=== PATIENT | female | born 1995 | race Two or more races ===

== ENCOUNTER 2019-02-06 05:10 | Emergency (ER) | payer BC, MEDICAID ==
[2019-02-06] MEDS ORDERED: Ketorolac 60 MG/2 ML SDV IM ONE (05:15)
[2019-02-06] MEDS ORDERED: Cyclobenzaprine 10 MG Tab PO ONE (05:16)
--- NOTE | 2019-02-06 05:26 | EDM.PDOC ---
ED HPI GENERAL MEDICAL PROBLEM - General Stated Complaint: NECK PAIN Time Seen by Provider: 02/06/19 05:20 Source of Information: Reports: Patient - History of Present Illness INITIAL COMMENTS - FREE TEXT/NARRATIVE: Patient is a 23 yo F who presented to the ED because apparently she combing her hair,heard a pop on her neck and now c/o RUE pain and weakness. ED ROS GENERAL - Review of Systems Review Of Systems: See Below Constitutional: Reports: No Symptoms HEENT: Reports: No Symptoms Respiratory: Reports: No Symptoms Cardiovascular: Reports: No Symptoms Endocrine: Reports: No Symptoms GI/Abdominal: Reports: No Symptoms : Reports: No Symptoms Musculoskeletal: Reports: No Symptoms, Muscle Pain Neurological: Reports: No Symptoms, Change in Speech ED EXAM, UPPER BACK/NECK PAIN - Physical Exam Exam: See Below Exam Limited By: No Limitations General Appearance: Alert, WD/WN, No Apparent Distress Eye Exam: Bilateral Eye: PERRL Ears Exam: Normal External Exam, Normal Canal Nose Exam: Normal Inspection, Normal Mucousa, No Blood Throat/Mouth Exam: Normal Inspection, Normal Lips, Normal Teeth Head Exam: Atraumatic, Normocephalic Neck Exam: Other (tenderness to C5-c7 area) Cardiovascular/Respiratory: Regular Rate, Rhythm GI/Abdominal: Normal Bowel Sounds, Soft, Non-Tender Course - Vital Signs Text/Narrative:: Ct c-spine Toradol 60 mg IM x1 Flexeril 10 mg po x1 - Orders/Labs/Meds Orders: Active Orders 24 hr Category Date Time Status Cervical Spine w wo Cont [CT] Stat Exams 02/06/19 05:17 Ordered Meds: Medications Discontinued Medications Generic Name Dose Route Start Last Admin Trade Name Tiara PRN Reason Stop Dose Admin Cyclobenzaprine HCl 10 mg 02/06/19 05:16 Flexeril PO 02/06/19 05:17 ONETIME ONE Ketorolac Tromethamine 60 mg 02/06/19 05:15 Toradol IM 02/06/19 05:16 ONETIME ONE Departure - Departure Time of Disposition: 05:30 Disposition: Home, Self-Care 01 Clinical Impression: Cervical strain, acute - Discharge Information Referrals: PCP,None [Primary Care Provider] - - My Orders Last 24 Hours: My Active Orders 02/06/19 05:17 Cervical Spine w wo Cont [CT] Stat - Assessment/Plan Last 24 Hours: My Active Orders 02/06/19 05:17 Cervical Spine w wo Cont [CT] Stat
[2019-02-06] MEDS: Acetaminophen/HYDROcodone 325-5 MG Tab PO ONE ×2 (06:34→08:22)
[2019-02-06] MEDS ORDERED: Acetaminophen/HYDROcodone 325-5 MG Tab PO ONE (08:18)
== END 2019-02-06 06:45 | disposition home or self-care (01) ==
LOC: FB.ED 05:10
DX: S16.1XXA Strain of muscle, fascia and tendon at neck level, initial encounter (principal); X50.9XXA Other and unspecified overexertion or strenuous movements or postures, initial encounter
CPT/HCPCS: 72127; 96372; 99283; A9270; J1885

== ENCOUNTER 2019-02-11 06:54 | Emergency (ER) | payer BC ==
[2019-02-11] MEDS ORDERED: Sodium Chloride 0.9% 10 ML Syringe FLUSH PRN (07:28)
[2019-02-11] MEDS ORDERED: Sodium Chloride 0.9% 1,000 ML IV ONE (07:29)
[2019-02-11] MEDS ORDERED: HYDROmorphone 2 MG/ML SDV IVPUSH ONE (07:29)
[2019-02-11] MEDS ORDERED: Ondansetron 4 MG/2 ML SDV IVPUSH ONE (07:29)
--- NOTE | 2019-02-11 07:31 | EDM.PDOC ---
ED HPI GENERAL MEDICAL PROBLEM - General Chief Complaint: Back Pain or Injury Stated Complaint: BACK PAIN/ABDOMINAL PAIN Time Seen by Provider: 02/11/19 07:17 Source of Information: Reports: Patient History Limitations: Reports: No Limitations - History of Present Illness INITIAL COMMENTS - FREE TEXT/NARRATIVE: 23-year-old female who reports at 2 AM she was awakened with pain from her mid back down to her sacral area that was a cramping type pain that she describes as "back labor feeling". The pain has worsened with time. It does radiate through to her lower abdomen and pelvic area. She had no antecedent symptoms. She has developed some nausea associated with it but no vomiting. Her last normal menstrual period was 2 weeks ago and she has no vaginal discharge. She's had no dysuria or hematuria. She rates the pain as a 10/10. Nothing really seems to make it better. There are no exacerbating factors as well. She did have some neck strain about a week ago but she had no problems with her back at that time. She does have some intermittent problems with back pain but nothing like this kind of pain and it has never radiated through to her abdomen. No fevers. No chills. She had a normal day yesterday. She has been eating and drinking normally. There are no other associated signs or symptoms. There are no other modifying factors. Onset: Today (2 AM) Duration: Getting Worse Location: Reports: Abdomen, Back Quality: Reports: Other (Cramping) Severity: Severe Improves with: Reports: None Worsens with: Reports: None Context: Reports: Other (As above) Associated Symptoms: Reports: Nausea/Vomiting Treatments [employer]: Reports: Other (see below) (Nothing) - Related Data Allergies Allergy/AdvReac Type Severity Reaction Status Date / Time No Known Allergies Allergy Verified 02/06/19 05:25 Home Meds: Home Meds Cyclobenzaprine [Flexeril] 10 mg PO TID PRN #15 tab 02/06/19 [Rx] Ibuprofen 800 mg PO TID PRN #30 tablet 02/06/19 [Rx] Hydrocodone/Acetaminophen [[place] 5-325 Tablet] 1 - 2 each PO Q6H PRN #6 tablet 02/11/19 [Rx] Sulfamethoxazole/Trimethoprim [Bactrim Ds Tablet] 1 each PO BID 7 Days #14 tablet 02/11/19 [Rx] Past Medical History - Past Health History Medical/Surgical History: Denies Medical/Surgical History - Past Surgical History Other Surgical History Comment: No previous surgeries. Social & Family History - Tobacco Use Smoking Status *Q: Unknown Ever Smoked (Nonsmoker) - Caffeine Use Caffeine Use: Reports: None - Sexual History Sexual History: Reports: Single Partner (Her 's had a vasectomy) - Living Situation & Occupation Living situation: Reports: Social History Comment: She is here with her . ED ROS GENERAL - Review of Systems Review Of Systems: See Below Constitutional: Reports: No Symptoms HEENT: Reports: No Symptoms Respiratory: Reports: No Symptoms Cardiovascular: Reports: No Symptoms GI/Abdominal: Reports: Abdominal Pain, Nausea. Denies: Vomiting : Reports: No Symptoms Musculoskeletal: Reports: Back Pain (As described above) Skin: Reports: No Symptoms Neurological: Reports: No Symptoms Hematologic/Lymphatic: Reports: No Symptoms Immunologic: Reports: No Symptoms ED EXAM, GENERAL - Physical Exam Exam: See Below Exam Limited By: No Limitations General Appearance: Alert, WD/WN, Moderate Distress Eye Exam: Bilateral Eye: EOMI, Normal Inspection, PERRL Ears: Normal External Exam, Hearing Grossly Normal Ear Exam: Bilateral Ear: Auricle Normal Nose: Normal Inspection, Normal Mucosa, No Blood Throat/Mouth: Normal Voice, No Airway Compromise, Other (Somewhat dry mucous membranes) Head: Atraumatic, Normocephalic Neck: Normal Inspection, Supple, Non-Tender, Full Range of Motion Respiratory/Chest: No Respiratory Distress, Lungs Clear, Normal Breath Sounds, No Accessory Muscle Use, Chest Non-Tender Cardiovascular: Normal Peripheral Pulses, No Murmur, Tachycardia (Mildly) Peripheral Pulses: 2+: Radial (L), Radial (R), Dorsalis Pedis (L), Dorsalis Pedis (R) GI/Abdominal: Normal Bowel Sounds, Soft, Non-Tender, No Mass, Other (I cannot reproduce the patient's pain with palpation.) (Female) Exam: Normal External Exam, Normal Speculum Exam, Normal Bimanual Exam, Vaginal Discharge (Physiologic appearing.). No: Adnexal Mass, Adnexal Tenderness, Cervix Motion Tenderness, Uterine Tenderness Back Exam: Normal Inspection, Full Range of Motion, Decreased Range of Motion. No: CVA Tenderness (R), CVA Tenderness (L), Muscle Spasm, Paraspinal Tenderness , Vertebral Tenderness Extremities: Normal Inspection, Normal Range of Motion, Non-Tender, No Pedal Edema, Normal Capillary Refill Neurological: Alert, Oriented, CN II-XII Intact, Normal Cognition, No Motor/ Sensory Deficits Skin Exam: Warm, Dry, Intact, Normal Color, No Rash Course - Vital Signs Last Recorded V/S: Last Vital Signs Temp 36.2 C 02/11/19 06:54 Pulse 58 L 02/11/19 08:45 Resp 18 02/11/19 08:45 BP 137/84 02/11/19 08:45 Pulse Ox 99 02/11/19 08:45 - Orders/Labs/Meds Orders: Active Orders 24 hr Category Date Time Status Abdomen Pelvis wo Cont [CT] Stat Exams 02/11/19 08:55 Taken CHLAMYDIA/GC AMPLIFICATION Urgent Lab 02/11/19 08:36 Received CULTURE URINE [RM] Stat Lab 02/11/19 08:36 Received WET PREP [MYC] Stat Lab 02/11/19 10:08 Ordered Sodium Chloride 0.9% [Saline Flush] Med 02/11/19 07:28 Active 10 ml FLUSH ASDIRECTED PRN Peripheral IV Insertion Adult [OM.PC] Routine Oth 02/11/19 07:28 Ordered Medication Orders Sodium Chloride (Saline Flush) 10 ml FLUSH ASDIRECTED PRN PRN Reason: Keep Vein Open Last Admin: 02/11/19 07:57 Dose: 10 ml Labs: Laboratory Tests 02/11/19 02/11/19 02/11/19 Range/Units 07:45 07:45 07:45 WBC 6.9 (4.5-12.0) X10-3/uL RBC 5.09 (3.23-5.20) x10(6)uL Hgb 14.1 (11.5-15.5) g/dL Hct 42.5 (30.0-51.3) % MCV 83.5 (80-96) fL MCH 27.7 (27.7-33.6) pg MCHC 33.1 (32.2-35.4) g/dL RDW 12.6 (11.5-15.5) % Plt Count 229 (125-369) X10(3)uL MPV 7.5 (7.4-10.4) fL Neut % (Auto) 70.5 (46-82) % Lymph % (Auto) 20.9 (13-37) % [place] % (Auto) 5.5 (4-12) % Eos % (Auto) 3 (1.0-5.0) % Baso % (Auto) 0 (0-2) % Neut # (Auto) 4.9 (1.6-8.3) # Lymph # (Auto) 1.4 (0.6-5.0) # [place] # (Auto) 0.4 (0.0-1.3) # Eos # (Auto) 0.2 (0.0-0.8) # Baso # (Auto) 0.0 (0.0-0.2) # Sodium 136 (135-145) mmol/L Potassium 3.8 (3.5-5.3) mmol/L Chloride 101 (100-110) mmol/L Carbon Dioxide 24 (21-32) mmol/L BUN 11 (7-18) mg/dL Creatinine 0.9 (0.55-1.02) mg/dL Est Cr Clr Drug Dosing 90.23 mL/min Estimated GFR (MDRD) > 60 (>60) BUN/Creatinine Ratio 12.2 (9-20) Glucose 121 H (80-116) mg/dL Calcium 9.4 (8.6-10.2) mg/dL Total Bilirubin 0.3 (0.1-1.3) mg/dL AST 15 (5-25) IU/L ALT 18 (12-36) U/L Alkaline Phosphatase 67 (56-112) IU/L C-Reactive Protein 0.6 (0.5-0.9) mg/dL Total Protein 8.2 H (6.0-8.0) g/dL Albumin 4.0 (3.5-5.2) g/dL Globulin 4.2 g/dL Albumin/Globulin Ratio 1.0 Amylase 60 (25-115) U/L Urine Color (YELLOW) Urine Appearance (CLEAR) Urine pH (5.0-6.5) Ur Specific [place] (1.010-1.025) Urine Protein (NEGATIVE) mg/dL Urine Glucose (UA) (NORMAL) mg/dL Urine Ketones (NEGATIVE) mg/dL Urine Occult Blood (NEGATIVE) Urine Nitrite (NEGATIVE) Urine Bilirubin (NEGATIVE) Urine Urobilinogen (NEGATIVE) mg/dL Ur Leukocyte Esterase (NEGATIVE) Urine RBC (0-5) Urine WBC (0-5) Ur Squamous Epith Cells (NS,R,O) Urine Bacteria (NS) Urine HCG, Qual (NEGATIVE) 02/11/19 02/11/19 Range/Units 08:36 08:36 WBC (4.5-12.0) X10-3/uL RBC (3.23-5.20) x10(6)uL Hgb (11.5-15.5) g/dL Hct (30.0-51.3) % MCV (80-96) fL MCH (27.7-33.6) pg MCHC (32.2-35.4) g/dL RDW (11.5-15.5) % Plt Count (125-369) X10(3)uL MPV (7.4-10.4) fL Neut % (Auto) (46-82) % Lymph % (Auto) (13-37) % [place] % (Auto) (4-12) % Eos % (Auto) (1.0-5.0) % Baso % (Auto) (0-2) % Neut # (Auto) (1.6-8.3) # Lymph # (Auto) (0.6-5.0) # [place] # (Auto) (0.0-1.3) # Eos # (Auto) (0.0-0.8) # Baso # (Auto) (0.0-0.2) # Sodium (135-145) mmol/L Potassium (3.5-5.3) mmol/L Chloride (100-110) mmol/L Carbon Dioxide (21-32) mmol/L BUN (7-18) mg/dL Creatinine (0.55-1.02) mg/dL Est Cr Clr Drug Dosing mL/min Estimated GFR (MDRD) (>60) BUN/Creatinine Ratio (9-20) Glucose (80-116) mg/dL Calcium (8.6-10.2) mg/dL Total Bilirubin (0.1-1.3) mg/dL AST (5-25) IU/L ALT (12-36) U/L Alkaline Phosphatase (56-112) IU/L C-Reactive Protein (0.5-0.9) mg/dL Total Protein (6.0-8.0) g/dL Albumin (3.5-5.2) g/dL Globulin g/dL Albumin/Globulin Ratio Amylase (25-115) U/L Urine Color Yellow (YELLOW) Urine Appearance Slightly cloudy (CLEAR) Urine pH 8.0 H (5.0-6.5) Ur Specific [place] 1.015 (1.010-1.025) Urine Protein Negative (NEGATIVE) mg/dL Urine Glucose (UA) Normal (NORMAL) mg/dL Urine Ketones Negative (NEGATIVE) mg/dL Urine Occult Blood Negative (NEGATIVE) Urine Nitrite Positive H (NEGATIVE) Urine Bilirubin Negative (NEGATIVE) Urine Urobilinogen Normal (NEGATIVE) mg/dL Ur Leukocyte Esterase Negative (NEGATIVE) Urine RBC 0-5 (0-5) Urine WBC 5-10 H (0-5) Ur Squamous Epith Cells Moderate H (NS,R,O) Urine Bacteria Many H (NS) Urine HCG, Qual Negative (NEGATIVE) Meds: Medications Generic Name Dose Route Start Last Admin Trade Name Freq PRN Reason Stop Dose Admin Sodium Chloride 10 ml 02/11/19 07:28 02/11/19 07:57 Saline Flush FLUSH 10 ml ASDIRECTED PRN Administration Keep Vein Open Discontinued Medications Generic Name Dose Route Start Last Admin Trade Name Freq PRN Reason Stop Dose Admin Hydromorphone HCl 1 mg 02/11/19 07:29 02/11/19 07:46 Dilaudid IVPUSH 02/11/19 07:30 1 mg ONETIME ONE Administration Sodium Chloride 1,000 mls @ 999 mls/hr 02/11/19 07:29 02/11/19 07:55 Normal Saline IV 02/11/19 08:29 999 mls/hr .BOLUS ONE Administration Ondansetron HCl 4 mg 02/11/19 07:29 02/11/19 07:46 Zofran IVPUSH 02/11/19 07:30 4 mg ONETIME ONE Administration - Radiology Interpretation Free Text/Narrative:: CT scan of abdomen and pelvis showed no acute intra-abdominal. She did have somewhat thick wall of her bladder and some gas in the cavity of the uterus that was "unusual" per the radiologist. It should be noted that the patient's pelvic exam was completely benign and unremarkable. She does have evidence of a urinary tract infection though. - Re-Assessments/Exams Free Text/Narrative Re-Assessment/Exam: 02/11/19 10:36: Patient's pain is almost completely resolved. She feels much improved after the IV fluids and the pain medication. Her nausea has resolved as well. Her blood tests were reassuringly normal. The CT scan of her abdomen and pelvis showed no definite abnormality except for the thickened urinary bladder wall. The urinalysis did show evidence of infection. Her pain may be related to this urinary tract infection and I will place the patient on antibiotics to treat this. I have also given her a small prescription of hydrocodone if she has any more some type pain like she had. She was urged to follow-up with her primary doctor. Departure - Departure Time of Disposition: 10:40 Disposition: Home, Self-Care 01 Condition: Good (Improved) Clinical Impression: Back pain with radiation Urinary tract infection Qualifiers: Urinary tract infection type: site unspecified Hematuria presence: with hematuria Qualified Code(s): N39.0 - Urinary tract infection, site not specified ; R31.9 - Hematuria, unspecified Abdominal pain Qualifiers: Abdominal location: lower abdomen, unspecified Qualified Code(s): R10.30 - Lower abdominal pain, unspecified - Discharge Information Prescriptions: Hydrocodone/Acetaminophen [[place] 5-325 Tablet] 1 - 2 each PO Q6H PRN #6 tablet PRN Reason: Moderate to severe pain Sulfamethoxazole/Trimethoprim [Bactrim Ds Tablet] 1 each PO BID 7 Days #14 tablet Instructions: Abdominal Pain, Adult, [id number], Urinary Tract Infection, Adult, [id number] Referrals: Kayla South NP [Nurse Practitioner] - Forms: ED Department Discharge Additional Instructions: Your blood tests were reassuringly normal. Your urine test showed some evidence of infection. The CT scan of your abdomen and pelvis supported there being a urinary infection but did not show any other acute abnormality. I am not really sure why you had such severe back pain radiating to your abdomen. This could have been due to bladder spasm related to your infection. You should increase her fluid intake. You should rest. Medication as prescribed (Bactrim DS, hydrocodone 5/325). I have referred you to Kayla South NP for follow-up. She would also be a good choice as a primary provider for you. Back to the emergency department for unrelenting vomiting, high fever, worsening abdominal pain or any other concerning sign or symptom. - My Orders Last 24 Hours: My Active Orders 02/11/19 07:28 Sodium Chloride 0.9% [Saline Flush] 10 ml FLUSH ASDIRECTED PRN Peripheral IV Insertion Adult [OM.PC] Routine 02/11/19 08:36 CHLAMYDIA/GC AMPLIFICATION Urgent CULTURE URINE [RM] Stat 02/11/19 08:55 Abdomen Pelvis wo Cont [CT] Stat 02/11/19 10:08 WET PREP [MYC] Stat - Assessment/Plan Last 24 Hours: My Active Orders 02/11/19 07:28 Sodium Chloride 0.9% [Saline Flush] 10 ml FLUSH ASDIRECTED PRN Peripheral IV Insertion Adult [OM.PC] Routine 02/11/19 08:36 CHLAMYDIA/GC AMPLIFICATION Urgent CULTURE URINE [RM] Stat 02/11/19 08:55 Abdomen Pelvis wo Cont [CT] Stat 02/11/19 10:08 WET PREP [MYC] Stat
--- NOTE | 2019-02-11 11:13 | CT ---
INDICATION: Back and abdominal pain, question renal stone. CT ABDOMEN AND PELVIS WITHOUT CONTRAST: Spiral 2.5 mm axial sections were obtained through the abdomen and pelvis without contrast, with sagittal and coronal reconstructions, 02/11/19 - no comparisons. Total exam DLP = 913.56 mGy -cm. The lower lung eubanks and pleural spaces visualized appeared normal. The heart was normal in size. No pericardial effusion was seen. No gallstones were demonstrated. The liver, spleen, pancreas, adrenals, and kidneys appear normal. No evidence of obstructive uropathy or renal calcinosis was identified. No definite retroperitoneal mass was seen. Retroperitoneal lymphadenopathy is minimal and nonspecific. The appendix was visualized on axial images #111 through #127 and coronal images #44 through #55. The appendix was also visualized on sagittal images # 35 through #46. The appendix appeared to be normal. No evidence of free air or bowel obstruction was identified. There is suggestion of a prominent common bile duct of approximately 7 mm, unusual in this age group. No specific etiology was identified; however, without IV contrast, study is limited in that regard, especially in evaluating solid organs. The uterus appears mildly bulky with gas suggested in the uterus. It is difficult to exclude a mass in the uterus without IV contrast. A pelvic ultrasound may be helpful in that regard. Urinary bladder wall might be slightly thickened, raising question of cystitis additionally. This should be correlated clinically also. The ovaries appear to be fairly symmetrical, measuring approximately 35 mm each. No definite free fluid, mass lesions, or organomegaly were otherwise suggested. There is suggestion of some minimal loss of disk space at L4-5. This could be a normal variant. This also should be correlated clinically. No evidence of ventral hernia or inguinal hernia was identified. IMPRESSION: 1. Questionable findings in the uterus - correlate clinically. Pelvic ultrasound may be helpful for further evaluation. 2. Slight thickening of urinary bladder wall is suggested, which could be on the basis of cystitis but should be correlated clinically. 3. Minimal narrowing of the L4-5 disk may be present, raising question of disk disease at that level - correlate clinically. Report was called to Dr. Asencio at 0950 hours on 02/11/2019. [facility]
[2019-02-14 04:07] LABS: CHLAMYDIA TRACHOMATIS, NAA Negative (Negative); NEISSERIA GONORRHOEAE, NAA Negative (Negative)
== END 2019-02-11 11:00 | disposition home or self-care (01) ==
LOC: FB.ED 06:54
DX: N39.0 Urinary tract infection, site not specified (principal); R31.9 Hematuria, unspecified
CPT/HCPCS: 36415; 74176; 80053; 81001; 81025; 82150; 85025; 86140; 87086; 87088; 87186; 87210; 87491; 87591; 96361; 96374; 96375; 99284-25; J1170; J2405; J7030

== ENCOUNTER 2019-02-19 10:48 | Emergency (ER) | payer BC ==
--- NOTE | 2019-02-19 14:06 | EDM.PDOC ---
ED HPI GENERAL MEDICAL PROBLEM - General Chief Complaint: Abdominal Pain Stated Complaint: STOMACH AND BACK PAIN Time Seen by Provider: 02/19/19 11:20 Source of Information: Reports: Patient, Old Records History Limitations: Reports: No Limitations - History of Present Illness INITIAL COMMENTS - FREE TEXT/NARRATIVE: Patient is a very pleasant 24-year-old female who presents today with concern for vague sharp abdominal and back pain. She states feels like a spasm in her lower mid back, and then come straight through to the front of her abdomen. She took some ibuprofen at about 1020 this morning after pain suddenly abruptly worsened, and that seems to have helped now. She is not get any relief or change when she is doing any activities or walking around. She otherwise does not have any symptoms. She was seen last week in the ER for a similar kind of presentation, a CT abdomen and pelvis was performed and she was started on Bactrim for suspected UTI, which she finished yesterday. She denies nausea, vomiting, urinary symptoms such as increased frequency or urgency, change in menstrual cycles. She has regular periods and her last LMP was 3 weeks ago. Her has had a vasectomy she does not think she could be . She had diarrhea yesterday, but that has not generally been a problem. She has not had any fever, chills or sweats. She is otherwise healthy and does not take any medications on a regular basis. , with a 2-year-old at home and one year-old twins. Had Gestational diabetes mellitus and pre-eclampsia with first only. 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 Social & Family History - Family History Musculoskeletal: Reports: Arthritis (sister @ age 27) Oncologic: Reports: Brain, Breast, Lung - Tobacco Use Smoking Status *Q: Never Smoker - Caffeine Use Caffeine Use: Reports: Soda, Tea - Alcohol Use Alcohol Use History: Yes Number of Drinks Per Day Comment: social - Recreational Drug Use Recreational Drug Use: No - Sexual History Sexual History: Reports: Single Partner (Her 's had a vasectomy) - Living Situation & Occupation Living situation: Reports: Occupation: Employed ED ROS GENERAL - Review of Systems Review Of Systems: ROS reveals no pertinent complaints other than HPI. ED EXAM, GENERAL - Physical Exam Exam: See Below Free Text/Narrative:: Gen.: Alert, very pleasant no acute distress. Throat is without erythema, mucous members are moist and there is no tonsillar enlargement or exudates. Neck is supple and there is no cervical lymphadenopathy. No supraclavicular lymphadenopathy. Heart is regular rate and rhythm and I do not hear murmur. Lungs are clear throughout with no wheezes or crackles and good air movement in all eubanks. Abdomen positive bowel sounds, soft nondistended nontender with no rebound or guarding. No sterility signs of discomfort with palpation. Peripheral pulses +2 in the upper and lower extremities and there is no lower extremity edema. Neurologic exam shows equal strength in the upper and lower extremity is bilaterally, reflexes +2 out of 4 in the upper and lower extremity is bilaterally, and no sensation deficits. Lumbar exam she has normal flexion, extension, and side bending with no reproduction of her pain. No spinous process tenderness and no pain anywhere in her back including the costovertebral angles. Pelvic exam deferred as it was just completed last week. Course - Vital Signs Text/Narrative:: Initial impression: Patient with vague back and abdominal pain which is difficult to reproduce on exam. Workup completed last week but would benefit from pelvic ultrasound. Differential: Ovarian cyst, other intra-abdominal pathology, unlikely to be pancreatitis given her appearance, possible peptic ulcer disease. Will repeat labs, urine test and get pelvic ultrasound Last Recorded V/S: Last Vital Signs Temp 36.6 C 02/19/19 11:18 Pulse 71 02/19/19 11:18 Resp 17 02/19/19 11:18 BP 139/69 02/19/19 11:18 Pulse Ox 100 02/19/19 11:18 - Orders/Labs/Meds Orders: Active Orders 24 hr Category Date Time Status Pelvis Non OB Ltd [US] Stat Exams 02/19/19 12:06 Taken Transvaginal Non OB [US] Stat Exams 02/19/19 13:16 Taken Labs: Laboratory Tests 02/19/19 02/19/19 02/19/19 Range/Units 12:10 12:10 12:15 WBC 8.5 (4.5-12.0) X10-3/uL RBC 5.20 (3.23-5.20) x10(6)uL Hgb 14.2 (11.5-15.5) g/dL Hct 43.2 (30.0-51.3) % MCV 83.1 (80-96) fL MCH 27.3 L (27.7-33.6) pg MCHC 32.8 (32.2-35.4) g/dL RDW 12.9 (11.5-15.5) % Plt Count 245 (125-369) X10(3)uL MPV 7.5 (7.4-10.4) fL Neut % (Auto) 73.9 (46-82) % Lymph % (Auto) 13.6 (13-37) % [place] % (Auto) 4.9 (4-12) % Eos % (Auto) 7 H (1.0-5.0) % Baso % (Auto) 0 (0-2) % Neut # (Auto) 6.3 (1.6-8.3) # Lymph # (Auto) 1.2 (0.6-5.0) # [place] # (Auto) 0.4 (0.0-1.3) # Eos # (Auto) 0.6 (0.0-0.8) # Baso # (Auto) 0.0 (0.0-0.2) # ESR 19 (0-20) mm/hr Sodium (135-145) mmol/L Potassium (3.5-5.3) mmol/L Chloride (100-110) mmol/L Carbon Dioxide (21-32) mmol/L BUN (7-18) mg/dL Creatinine (0.55-1.02) mg/dL Est Cr Clr Drug Dosing mL/min Estimated GFR (MDRD) (>60) BUN/Creatinine Ratio (9-20) Glucose (80-116) mg/dL Calcium (8.6-10.2) mg/dL Total Bilirubin (0.1-1.3) mg/dL AST (5-25) IU/L ALT (12-36) U/L Alkaline Phosphatase (56-112) IU/L C-Reactive Protein (0.5-0.9) mg/dL Total Protein (6.0-8.0) g/dL Albumin (3.5-5.2) g/dL Globulin g/dL Albumin/Globulin Ratio Amylase (25-115) U/L Urine Color Yellow (YELLOW) Urine Appearance Clear (CLEAR) Urine pH 6.0 (5.0-6.5) Ur Specific [place] 1.015 (1.010-1.025) Urine Protein Negative (NEGATIVE) mg/dL Urine Glucose (UA) Normal (NORMAL) mg/dL Urine Ketones Negative (NEGATIVE) mg/dL Urine Occult Blood Negative (NEGATIVE) Urine Nitrite Negative (NEGATIVE) Urine Bilirubin Negative (NEGATIVE) Urine Urobilinogen Normal (NEGATIVE) mg/dL Ur Leukocyte Esterase Negative (NEGATIVE) Urine RBC 0-5 (0-5) Urine WBC 0-5 (0-5) Ur Squamous Epith Cells Moderate H (NS,R,O) Urine Bacteria Moderate H (NS) Urine HCG, Qual Negative (NEGATIVE) 02/19/19 02/19/19 Range/Units 12:15 12:15 WBC (4.5-12.0) X10-3/uL RBC (3.23-5.20) x10(6)uL Hgb (11.5-15.5) g/dL Hct (30.0-51.3) % MCV (80-96) fL MCH (27.7-33.6) pg MCHC (32.2-35.4) g/dL RDW (11.5-15.5) % Plt Count (125-369) X10(3)uL MPV (7.4-10.4) fL Neut % (Auto) (46-82) % Lymph % (Auto) (13-37) % [place] % (Auto) (4-12) % Eos % (Auto) (1.0-5.0) % Baso % (Auto) (0-2) % Neut # (Auto) (1.6-8.3) # Lymph # (Auto) (0.6-5.0) # [place] # (Auto) (0.0-1.3) # Eos # (Auto) (0.0-0.8) # Baso # (Auto) (0.0-0.2) # ESR (0-20) mm/hr Sodium 137 (135-145) mmol/L Potassium 4.2 (3.5-5.3) mmol/L Chloride 101 (100-110) mmol/L Carbon Dioxide 26 (21-32) mmol/L BUN 11 (7-18) mg/dL Creatinine 1.0 (0.55-1.02) mg/dL Est Cr Clr Drug Dosing 83.63 mL/min Estimated GFR (MDRD) > 60 (>60) BUN/Creatinine Ratio 11.0 (9-20) Glucose 88 (80-116) mg/dL Calcium 9.3 (8.6-10.2) mg/dL Total Bilirubin 0.2 (0.1-1.3) mg/dL AST 15 (5-25) IU/L ALT 18 (12-36) U/L Alkaline Phosphatase 75 (56-112) IU/L C-Reactive Protein 1.5 H (0.5-0.9) mg/dL Total Protein 8.4 H (6.0-8.0) g/dL Albumin 3.9 (3.5-5.2) g/dL Globulin 4.5 g/dL Albumin/Globulin Ratio 0.9 Amylase 62 (25-115) U/L Urine Color (YELLOW) Urine Appearance (CLEAR) Urine pH (5.0-6.5) Ur Specific [place] (1.010-1.025) Urine Protein (NEGATIVE) mg/dL Urine Glucose (UA) (NORMAL) mg/dL Urine Ketones (NEGATIVE) mg/dL Urine Occult Blood (NEGATIVE) Urine Nitrite (NEGATIVE) Urine Bilirubin (NEGATIVE) Urine Urobilinogen (NEGATIVE) mg/dL Ur Leukocyte Esterase (NEGATIVE) Urine RBC (0-5) Urine WBC (0-5) Ur Squamous Epith Cells (NS,R,O) Urine Bacteria (NS) Urine HCG, Qual (NEGATIVE) - Re-Assessments/Exams Free Text/Narrative Re-Assessment/Exam: 02/19/19 labs reviewed and appear to be within normal limits except for very slightly elevated CRP and creatinine of 1.1. Pelvic ultrasound report is pending. Patient remained stable with no change in symptoms Free Text/Narrative Re-Assessment/Exam: 02/19/19 pelvic ultrasound report: Multiple follicles noted on ovaries, moderate free fluid in the pelvis, thickened endometrium. Recommended repeat ultrasound in 2 weeks. I discussed these results with the patient And recommended follow-up in the walk -in clinic or one of palpation in clinics in [facility] to establish care and for follow-up. Discussed clinical syndrome of polycystic ovarian disease and I suspect that one of her follicles or cysts ruptured within the last week and has created free fluid in her pelvis, which is creating irritation. It should slowly resolve on its own. No signs of urinary tract infection today, or any other intra-abdominal infection. See discharge instructions. She was in agreement with this plan and all questions were answered. Discussed reasons to return to the ER if necessary Departure - Departure Time of Disposition: 13:59 Disposition: Home, Self-Care 01 Condition: Good Clinical Impression: Ovarian cyst - Discharge Information *PRESCRIPTION DRUG MONITORING PROGRAM REVIEWED*: Not Applicable *COPY OF PRESCRIPTION DRUG MONITORING REPORT IN PATIENT PATRICIA: Not Applicable Instructions: Ovarian Cyst Referrals: PCP,None [Primary Care Provider] - Additional Instructions: pain should slowly get better over time. If another cyst ruptures, however, you could have an increase in pain similar to what's happened before. If fever, ongoing vomiting, or severe pain in abdomen return to ER for re- evaluation can take ibuprofen 600mg as needed. Drink LOTS of water with this. Also be sure to drink a lot in general. Your kidney function was slightly elevated today and should be rechecked in a couple weeks. You should followup in an outpatient clinic to establish care sometime in the next 10 days. They can do routine health screening - would consider checking for impaired fasting glucose, given appearance of polycystic ovaries and slight acanthosis nigricans. For next clinician: creatinine 1.1 pelvic US showed multiple ovarian follicles and thickened endometrium, recommend repeat in 2 weeks. A moderate amount of free fluid was present in the pelvis. - My Orders Last 24 Hours: My Active Orders 02/19/19 12:06 Pelvis Non OB Ltd [US] Stat 02/19/19 13:16 Transvaginal Non OB [US] Stat - Assessment/Plan Last 24 Hours: My Active Orders 02/19/19 12:06 Pelvis Non OB Ltd [US] Stat 02/19/19 13:16 Transvaginal Non OB [US] Stat
--- NOTE | 2019-02-19 15:18 | US ---
INDICATION: Abdominal and pelvic pain. INDICATION FOR TRANSVAGINAL: Abdominal and pelvic pain/need better visualization of the ovaries than was possible with transabdominal probe. PELVIC ULTRASOUND, NON-OB, LIMITED/TRANSVAGINAL PELVIC ULTRASOUND, NON-OB: Multiple ultrasonic images were obtained 02/19/19, utilizing 2-D real time and color flow imaging and compared with 02/11/19 CT abdomen and pelvis, initially using transabdominal probe and then transvaginal probe to better visualize the ovaries. Uterus: 7.5 x 4.3 x 5.6 cm, retroverted after emptying of the bladder with transvaginal probe ultrasound. No uterine mass is identified. A moderate amount of free fluid is suggested in the posterior cul-de-sac. The endometrial cavity echo was approximately 1.3 cm with some fluid in the endometrial cavity, which may be on the basis of menstrual cycle. A followup ultrasound in 2 weeks should be confirmatory, as felt to be clinically necessary. The free fluid in the posterior cul-de-sac could also be confirmed as physiologic by repeat transvaginal and pelvic ultrasound. The right ovary measured 5.3 x 3.5 x 2.0 cm with multiple follicles present and a relatively high volume of 19.4 mL. The follicles are somewhat peripherally oriented, raising question of polycystic ovarian disease, which is also suggested with the appearance of the left ovary, which also had a large volume of 25.68 mm with the left ovary measuring 2.3 x 5.2 x 4.1 cm. No adnexal mass lesions were identified. IMPRESSION: 1. Prominent ovaries with peripheral follicles raising question of polycystic ovarian disease syndrome. This should be correlated clinically. 2. Endometrial cavity was prominent with some fluid, most likely physiologic but should be correlated clinically with followup ultrasound likely to be confirmatory in two weeks. 3. Moderate amount of free pelvic fluid may simply be physiologic due to cyst rupture, which could also be confirmed hopefully by repeat transvaginal pelvic ultrasound in approximately 2 or 6 weeks. Report was called to Dr. Lunsford at 1340 hours on 02/19/19. [facility]
== END 2019-02-19 14:15 | disposition home or self-care (01) ==
LOC: FB.ED 10:48
DX: N83.209 Unspecified ovarian cyst, unspecified side (principal)
CPT/HCPCS: 36415; 76830; 76857; 80053; 81001; 81025; 82150; 85025; 85651; 86140; 99284-25

== ENCOUNTER 2020-01-04 00:12 | Emergency (ER) | payer BC ==
[2020-01-04] MEDS ORDERED: Acetaminophen/HYDROcodone 325-5 MG Tab PO ONE (00:13)
[2020-01-04] MEDS ORDERED: Sodium Chloride 0.9% 1,000 ML IV ONE (00:26)
[2020-01-04] MEDS ORDERED: Sodium Chloride 0.9% 10 ML Syringe FLUSH PRN (00:26)
[2020-01-04] MEDS ORDERED: Ondansetron 4 MG/2 ML SDV IVPUSH ONE (00:27)
[2020-01-04] MEDS ORDERED: HYDROmorphone 2 MG/ML SDV IVPUSH ONE (00:30)
--- NOTE | 2020-01-04 00:32 | EDM.PDOC ---
ED HPI GENERAL MEDICAL PROBLEM - General Chief Complaint: Abdominal Pain Stated Complaint: OVARIAN CYST Time Seen by Provider: 01/04/20 00:31 Source of Information: Reports: Patient History Limitations: Reports: No Limitations - History of Present Illness INITIAL COMMENTS - FREE TEXT/NARRATIVE: Presents with low abdominal pain radiating to back x 2 weeks, worse this evening, associated with nausea. Had similar symptoms 1 year ago, thought to be due to ovarian cysts. Denies recent intercourse. No prior abdominal surgeries. 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 Social & Family History - Family History Family Medical History: Noncontributory Musculoskeletal: Reports: Arthritis (sister @ age 27) Oncologic: Reports: Brain, Breast, Lung - Caffeine Use Caffeine Use: Reports: Soda, Tea - Sexual History Sexual History: Reports: Single Partner (Her 's had a vasectomy) - Living Situation & Occupation Living situation: Reports: Occupation: Employed ED ROS GENERAL - Review of Systems Review Of Systems: Comprehensive ROS is negative, except as noted in HPI. ED EXAM, GI/ABD - Physical Exam Exam: See Below Exam Limited By: No Limitations General Appearance: Alert, WD/WN, Mild Distress Throat/Mouth: No Airway Compromise Head: Atraumatic, Normocephalic Respiratory/Chest: No Respiratory Distress, Lungs Clear, Normal Breath Sounds Cardiovascular: Regular Rate, Rhythm, No Murmur GI/Abdominal Exam: Normal Bowel Sounds, Soft, No Distention, Tender (LLQ) Back Exam: Normal Inspection Neurological: Alert, Normal Cognition Psychiatric: Normal Affect, Normal Mood Skin Exam: Warm, Dry, Intact Course - Vital Signs Last Recorded V/S: Last Vital Signs Temp 37.4 C 01/04/20 00:12 Pulse 76 01/04/20 00:12 Resp 19 01/04/20 00:12 BP 103/80 01/04/20 00:12 Pulse Ox 100 01/04/20 00:12 - Orders/Labs/Meds Orders: Active Orders 24 hr Category Date Time Status Abdomen Pelvis w Cont [CT] Stat Exams 01/04/20 00:48 Taken CHLAMYDIA/GC AMPLIFICATION Stat Lab 01/04/20 00:25 Received Sodium Chloride 0.9% [Saline Flush] Med 01/04/20 00:26 Active 10 ml FLUSH ASDIRECTED PRN Saline Lock Insert [OM.PC] Routine Oth 01/04/20 00:26 Ordered Medication Orders Sodium Chloride (Saline Flush) 10 ml FLUSH ASDIRECTED PRN PRN Reason: Keep Vein Open Last Admin: 01/04/20 00:46 Dose: 10 ml Documented by: JACOBY Labs: Laboratory Tests 01/04/20 01/04/20 01/04/20 Range/Units 00:25 00:25 00:34 WBC 7.6 (4.5-12.0) X10-3/uL RBC 4.79 (3.23-5.20) x10(6)uL Hgb 12.7 (11.5-15.5) g/dL Hct 39.9 (30.0-51.3) % MCV 83.4 (80-96) fL MCH 26.6 L (27.7-33.6) pg MCHC 31.9 L (32.2-35.4) g/dL RDW 12.7 (11.5-15.5) % Plt Count 240 (125-369) X10(3)uL MPV 7.7 (7.4-10.4) fL Neut % (Auto) 56.6 (46-82) % Lymph % (Auto) 30.9 (13-37) % [place] % (Auto) 7.0 (4-12) % Eos % (Auto) 5 (1.0-5.0) % Baso % (Auto) 0 (0-2) % Neut # (Auto) 4.4 (1.6-8.3) # Lymph # (Auto) 2.3 (0.6-5.0) # [place] # (Auto) 0.5 (0.0-1.3) # Eos # (Auto) 0.4 (0.0-0.8) # Baso # (Auto) 0.0 (0.0-0.2) # Sodium (135-145) mmol/L Potassium (3.5-5.3) mmol/L Chloride (100-110) mmol/L Carbon Dioxide (21-32) mmol/L BUN (7-18) mg/dL Creatinine (0.55-1.02) mg/dL Est Cr Clr Drug Dosing Estimated GFR (MDRD) (>60) BUN/Creatinine Ratio (9-20) Glucose (80-116) mg/dL Calcium (8.6-10.2) mg/dL Total Bilirubin (0.1-1.3) mg/dL AST (5-25) IU/L ALT (12-36) U/L Alkaline Phosphatase (56-112) IU/L Total Protein (6.0-8.0) g/dL Albumin (3.5-5.2) g/dL Globulin g/dL Albumin/Globulin Ratio Lipase (73-393) U/L Urine Color Yellow (YELLOW) Urine Appearance Slightly cloudy (CLEAR) Urine pH 8.0 H (5.0-6.5) Ur Specific [place] 1.010 (1.010-1.025) Urine Protein Negative (NEGATIVE) mg/dL Urine Glucose (UA) Normal (NORMAL) mg/dL Urine Ketones Negative (NEGATIVE) mg/dL Urine Occult Blood Negative (NEGATIVE) Urine Nitrite Negative (NEGATIVE) Urine Bilirubin Negative (NEGATIVE) Urine Urobilinogen Normal (NEGATIVE) mg/dL Ur Leukocyte Esterase Negative (NEGATIVE) Urine RBC 0-5 (0-5) Urine WBC 0-5 (0-5) Ur Squamous Epith Cells Moderate H (NS,R,O) Urine Bacteria Few H (NS) Urine Mucus Few H (NS) Urine HCG, Qual Negative (NEGATIVE) 01/04/20 01/04/20 Range/Units 00:34 00:34 WBC (4.5-12.0) X10-3/uL RBC (3.23-5.20) x10(6)uL Hgb (11.5-15.5) g/dL Hct (30.0-51.3) % MCV (80-96) fL MCH (27.7-33.6) pg MCHC (32.2-35.4) g/dL RDW (11.5-15.5) % Plt Count (125-369) X10(3)uL MPV (7.4-10.4) fL Neut % (Auto) (46-82) % Lymph % (Auto) (13-37) % [place] % (Auto) (4-12) % Eos % (Auto) (1.0-5.0) % Baso % (Auto) (0-2) % Neut # (Auto) (1.6-8.3) # Lymph # (Auto) (0.6-5.0) # [place] # (Auto) (0.0-1.3) # Eos # (Auto) (0.0-0.8) # Baso # (Auto) (0.0-0.2) # Sodium 138 (135-145) mmol/L Potassium 3.2 L D (3.5-5.3) mmol/L Chloride 103 (100-110) mmol/L Carbon Dioxide 24 (21-32) mmol/L BUN 20 H (7-18) mg/dL Creatinine 0.9 (0.55-1.02) mg/dL Est Cr Clr Drug Dosing TNP Estimated GFR (MDRD) > 60 (>60) BUN/Creatinine Ratio 22.2 H (9-20) Glucose 103 (80-116) mg/dL Calcium 8.9 (8.6-10.2) mg/dL Total Bilirubin 0.3 (0.1-1.3) mg/dL AST 15 (5-25) IU/L ALT 16 D (12-36) U/L Alkaline Phosphatase 59 (56-112) IU/L Total Protein 7.8 (6.0-8.0) g/dL Albumin 4.1 (3.5-5.2) g/dL Globulin 3.7 g/dL Albumin/Globulin Ratio 1.1 Lipase 81 (73-393) U/L Urine Color (YELLOW) Urine Appearance (CLEAR) Urine pH (5.0-6.5) Ur Specific [place] (1.010-1.025) Urine Protein (NEGATIVE) mg/dL Urine Glucose (UA) (NORMAL) mg/dL Urine Ketones (NEGATIVE) mg/dL Urine Occult Blood (NEGATIVE) Urine Nitrite (NEGATIVE) Urine Bilirubin (NEGATIVE) Urine Urobilinogen (NEGATIVE) mg/dL Ur Leukocyte Esterase (NEGATIVE) Urine RBC (0-5) Urine WBC (0-5) Ur Squamous Epith Cells (NS,R,O) Urine Bacteria (NS) Urine Mucus (NS) Urine HCG, Qual (NEGATIVE) Meds: Medications Generic Name Dose Route Start Last Admin Trade Name Tiara PRN Reason Stop Dose Admin Sodium Chloride 10 ml 01/04/20 00:26 01/04/20 00:46 Saline Flush FLUSH 10 ml ASDIRECTED PRN Administration Keep Vein Open Discontinued Medications Generic Name Dose Route Start Last Admin Trade Name Tiara PRN Reason Stop Dose Admin Hydromorphone HCl 1 mg 01/04/20 00:30 01/04/20 00:38 Dilaudid IVPUSH 01/04/20 00:31 1 mg ONETIME ONE Administration Sodium Chloride 1,000 mls @ 999 mls/hr 01/04/20 00:26 01/04/20 00:38 Normal Saline IV 01/04/20 01:26 999 mls/hr .BOLUS ONE Administration Iopamidol 100 ml 01/04/20 00:59 01/04/20 01:15 Isovue-370 (76%) IV 01/04/20 01:00 100 ml . DIRECTED ONE Administration Ketorolac Tromethamine 30 mg 01/04/20 01:42 01/04/20 01:46 Toradol IVPUSH 01/04/20 01:43 30 mg ONETIME ONE Administration Ondansetron HCl 4 mg 01/04/20 00:27 01/04/20 00:38 Zofran IVPUSH 01/04/20 00:28 4 mg ONETIME ONE Administration - Radiology Interpretation Free Text/Narrative:: CT abdomen and pelvis acquired with 100 cc Isovue 370 IV contrast. COMPARISON: February 12, 2020 FINDINGS: Lower chest: Unremarkable. Liver: Unremarkable. Spleen: Unremarkable. Pancreas: Unremarkable. Gallbladder and bile ducts: Unremarkable. Adrenal glands: Unremarkable. Kidneys: Unremarkable. GI tract: Unremarkable. Appendix is normal. Vascular structures: Unremarkable. Lymph nodes: Unremarkable. Miscellaneous: Small fat containing umbilical hernia. No free air or significant free fluid. Pelvic Organs: Trace free fluid in the pelvis. Bones: Unremarkable for age. IMPRESSION: No etiology seen to explain abdominal pain. Normal appendix. Please note that all CT scans at this facility use dose modulation, iterative reconstruction, and/or weight-based dosing when appropriate to reduce radiation dose to as low as reasonably achievable. Dictated by Addie Barton MD @ Jan 04 2020 1:50AM - Re-Assessments/Exams Free Text/Narrative Re-Assessment/Exam: 01/04/20 02:01 Symptoms improved after Toradol and Dilaudid. Departure - Departure Time of Disposition: 02:02 Disposition: Home, Self-Care 01 Condition: Good Clinical Impression: Abdominal pain Qualifiers: Abdominal location: lower abdomen, unspecified Qualified Code(s): R10.30 - Lower abdominal pain, unspecified - Discharge Information *PRESCRIPTION DRUG MONITORING PROGRAM REVIEWED*: Yes *COPY OF PRESCRIPTION DRUG MONITORING REPORT IN PATIENT PATRICIA: No Prescriptions: Acetaminophen/HYDROcodone [[place] 325-5 MG] 1 - 2 tab PO Q6H PRN #16 tab PRN Reason: Pain Instructions: Abdominal Pain, Adult, [id number], Ovarian Cyst, [id number] Referrals: PCP,None [Primary Care Provider] - Forms: ED Department Discharge Additional Instructions: Fill the [place] prescription and take as directed. You may also take OTC Ibuprofen as needed to control pain. Follow up with [employer]ENDANT in 1-2 days. Sepsis Event Note (ED) - Focused Exam Vital Signs: Vital Signs Temp Pulse Resp BP Pulse Ox 01/04/20 00:12 37.4 C 76 19 103/80 100 - My Orders Last 24 Hours: My Active Orders 01/04/20 00:25 CHLAMYDIA/GC AMPLIFICATION Stat 01/04/20 00:26 Sodium Chloride 0.9% [Saline Flush] 10 ml FLUSH ASDIRECTED PRN Saline Lock Insert [OM.PC] Routine 01/04/20 00:48 Abdomen Pelvis w Cont [CT] Stat - Assessment/Plan Last 24 Hours: My Active Orders 01/04/20 00:25 CHLAMYDIA/GC AMPLIFICATION Stat 01/04/20 00:26 Sodium Chloride 0.9% [Saline Flush] 10 ml FLUSH ASDIRECTED PRN Saline Lock Insert [OM.PC] Routine 01/04/20 00:48 Abdomen Pelvis w Cont [CT] Stat
[2020-01-04] MEDS ORDERED: Iopamidol 755 Mg/ML 100 ML Bottle IV ONE (00:59)
[2020-01-04] MEDS ORDERED: Ketorolac 30 MG/ML SDV IVPUSH ONE (01:42)
[2020-01-06 18:08] LABS: CHLAMYDIA TRACHOMATIS, NAA Negative (Negative); NEISSERIA GONORRHOEAE, NAA Negative (Negative)
== END 2020-01-04 02:10 | disposition home or self-care (01) ==
LOC: FB.ED 00:12
DX: R10.32 Left lower quadrant pain (principal)
CPT/HCPCS: 36415; 74177; 80053; 81001; 81025; 83690; 85025; 87491; 87591; 96374; 96375; 99284-25; A9270-GY; J1170; J1885; J2405; J7030; Q9967

== ENCOUNTER 2021-08-04 06:13 | Emergency (ER) | payer BC ==
[2021-08-04] MEDS: Sodium Chloride 0.9% 10 ML Syringe FLUSH PRN (06:25)
[2021-08-04] MEDS: Ondansetron 4 MG/2 ML SDV IVPUSH ONE (07:07)
[2021-08-04] MEDS: Ketorolac 30 MG/ML SDV IVPUSH ONE (07:07)
[2021-08-04] MEDS ORDERED: Ondansetron 4 MG/2 ML SDV IVPUSH STA (07:45)
[2021-08-04] MEDS ORDERED: Ketorolac 30 MG/ML SDV IVPUSH STA (07:45)
== END 2021-08-04 12:45 | disposition home or self-care (01) ==
LOC: FB.ED 06:13
DX: E28.2 Polycystic ovarian syndrome (principal); J45.909 Unspecified asthma, uncomplicated; E66.9 Obesity, unspecified; Z68.37 Body mass index [BMI] 37.0-37.9, adult
CPT/HCPCS: 36415; 76830; 76856; 80053; 81001; 82150; 83690; 85025; 96374; 96375; 99283; 99284-25; J1885; J2405